=== PATIENT | female | born 1955 | race Caucasian/White ===

== ENCOUNTER 2019-06-29 10:07 | Emergency (ER) | payer SELFPAY ==
[2019-06-29 10:37] VITALS: BP 135/77
--- NOTE | 2019-06-29 10:51 | UC ---
Lower Extremity/Ankle HPI - HPI Summary HPI Summary: right foot pain x 2 hrs pain is 3 out of 10 , no radiation of the pain worse with walking, better with rest, ice and Tylenol s/p fall this morning, twisted her right foot no swelling, no bruising - History of Current Complaint Chief Complaint: UCLowerExtremity Stated Complaint: S/P FALL RT FOOT/ANKLE COMPLAINT Time Seen by Provider: 06/29/19 10:29 Hx Obtained From: Patient Onset/Duration: Sudden Onset, Lasting Hours - 2 Severity Initially: Moderate Severity Currently: Moderate Pain Intensity: 3 Aggravating Factor(s): Standing, Ambulation Alleviating Factor(s): Rest, Elevation, Ice Able to Bear Weight: No - Allergies/Home Medications Allergies/Adverse Reactions: Allergies Allergy/AdvReac Type Severity Reaction Status Date / Time ampicillin Allergy Hives Verified 06/29/19 10:38 Penicillins Allergy See Comment Verified 06/29/19 10:38 Home Medications: Home Medications Atorvastatin* [Lipitor*] 20 mg PO 1700 06/29/19 [History Confirmed 06/29/19] Fluoxetine HCl [Prozac] 10 mg PO DAILY 06/29/19 [History Confirmed 06/29/19] amLODIPine TAB* [Norvasc 5 mg TAB*] 5 mg PO DAILY 06/29/19 [History Confirmed ] hydroCHLOROthiazide [Hydrochlorothiazide] 12.5 mg PO DAILY 06/29/19 [History Confirmed 06/29/19] PMH/Surg Hx/FS Hx/Imm Hx Cardiovascular History: Hypertension - Surgical History Surgical History: Yes Surgery Procedure, Year, and Place: 1984 TUBAL LIGATION. 1980 LEEP - Family History Known Family History: Positive: Hypertension - Social History Alcohol Use: Rare Substance Use Type: None Smoking Status (MU): Never Smoked Tobacco Review of Systems All Other Systems Reviewed And Are Negative: Yes Is Patient Immunocompromised?: No Physical Exam Triage Information Reviewed: Yes Appearance: Well-Appearing, No Pain Distress, Well-Nourished Vital Signs: Initial Vital Signs Temp 98.1 F 06/29/19 10:31 Pulse 69 06/29/19 10:31 Resp 14 06/29/19 10:31 BP 135/77 06/29/19 10:31 Pulse Ox 98 06/29/19 10:31 Vital Signs Reviewed: Yes Eye Exam: Normal ENT: Positive: Normal ENT inspection, Hearing grossly normal, Pharynx normal Neck: Positive: Supple, Nontender, No Lymphadenopathy Respiratory: Positive: Chest non-tender, Lungs clear, Normal breath sounds Cardiovascular: Positive: RRR, No Murmur Musculoskeletal: Positive: Other: - right foot: no swelling, no bruising, tenderness 1st and 2nd metatarsal, good ROM noram ankle exam Neurological Exam: Normal Skin Exam: Normal Diagnostics - Radiology No standard instances Radiology Interpretation Completed By: Radiologist Summary of Radiographic Findings: xray right foot : IMPRESSION: 1. NO DEFINITE FRACTURE. CHRONIC-APPEARING OS NAVICULARIS. CORRELATE WITH POINT TENDERNESS. 2. MODERATE FIRST MTP OSTEOPHYTE ARTHROPATHY Lower Extremity Course/Dx - Differential Dx/Diagnosis Provider Diagnosis: Sprain of right foot Discharge ED - Sign-Out/Discharge Documenting (check all that apply): Patient Departure All imaging exams completed and their final reports reviewed: Yes - Discharge Plan Condition: Stable Disposition: HOME Patient Education Materials: Foot Sprain (ED) Referrals: Xiomara Norris MD [Primary Care Provider] - 7 Days - Billing Disposition and Condition Condition: STABLE Disposition: Home
== END 2019-06-29 11:29 | disposition home or self-care (01) ==
LOC: UCCORT 10:07
DX: S93.601A Unspecified sprain of right foot, initial encounter (principal); M25.774 Osteophyte, right foot; M12.871 Other specific arthropathies, not elsewhere classified, right ankle and foot; I10 Essential (primary) hypertension; Z88.0 Allergy status to penicillin; Z79.899 Other long term (current) drug therapy; W19.XXXA Unspecified fall, initial encounter; X50.1XXA Overexertion from prolonged static or awkward postures, initial encounter; Y92.9 Unspecified place or not applicable
CPT/HCPCS: 99202; G0463